=== PATIENT | male | born 1970 | race Caucasian/White ===

== ENCOUNTER 2019-11-18 12:32 | Emergency (ER) | payer BC, OTHER ==
[~2019-11-18] VITALS: Ht 175.3 cm; Wt 138.1 kg
[~2019-11-18 12:32] MED LIST: CYCL-259 PO; HYDR-3240 PO; NAPR220C2 PO
[2019-11-18 12:53] VITALS: BP 107/83
[2019-11-18] MEDS ORDERED: DIAZEPAM 5 MG TABLET PO ONE (13:30)
[2019-11-18] MEDS ORDERED: KETOROLAC 30 MG/1 ML IM ONE (13:30)
[2019-11-18] MEDS ORDERED: DIAZEPAM 5 MG TABLET ONE (13:45)
[2019-11-18] MEDS ORDERED: KETOROLAC 30 MG/1 ML ONE (13:46)
--- NOTE | 2019-11-18 13:52 | NUR ---
MEDS ADMIN PER NOV.
[2019-11-18 13:55] LABS: BASOPHILS # (AUTO) 0.03 x10^3/uL (0-0.1); BASOPHILS % (AUTO) 0 % (0-1); EOSINOPHILS % (AUTO) 3 % (1-7); LYMPHOCYTES # (AUTO) 1.77 x10^3/uL (1-3.4); LYMPHOCYTES % (AUTO) 19 % (22-44); MD NO; MEAN CORPUSCULAR HEMOGLOBIN 30.9 pg (27.5-34.5); MEAN CORPUSCULAR HGB CONC 33.4 g/dL (33.2-36.2); MEAN CORPUSCULAR VOLUME 92.5 fL (81-97); MEAN PLATELET VOLUME 9.1 fL (7.4-10.4); MONOCYTES # (AUTO) 0.89 x10^3/uL (0.2-0.8); MONOCYTES % (AUTO) 10 % (2-9); NEUTROPHILS # (AUTO) 6.38 x10^3/uL (1.8-6.8); NEUTROPHILS % (AUTO) 68 % (42-75); PLATELET COUNT 233 x10^3/uL (130-400); RED BLOOD COUNT 5.06 x10^6/uL (4.38-5.82); RED CELL DISTRIBUTION WIDTH 12.8 % (9.4-14.8)
[2019-11-18 14:01] LABS: ALBUMIN 3.6 g/dL (3.4-5.0); ANION GAP 7 mmol/L (5-15); CALCIUM 9.2 mg/dL (8.5-10.1); CHLORIDE 109 mmol/L (98-107)
[2019-11-18 14:08] LABS: MICROSCOPIC NOT IND
[2019-11-18 14:12] LABS: CULTURE INDICATED? NO
== END 2019-11-18 14:33 | disposition home or self-care (01) ==
LOC: ED 14:28
DX: M51.36 Other intervertebral disc degeneration, lumbar region (principal)
CPT/HCPCS: 36415; 72110; 80048; 81003; 82040; 85025; 99284; J1885